=== PATIENT | male | born 1970 | race Caucasian/White ===

== ENCOUNTER → 2017-12-09 | Outpatient (CLI) | payer SELFPAY ==
[2014-05-24 11:23] VITALS: BMI 32.5
[~2017-12-09] MED LIST: ADV250/50 INH; ADVAIR; ALB17R INH; ALBMDV INH; ALBU8.5H12 IH; ALBUDR INH; AMIT-106 PO; AMOX-559 PO; AMOX500C7 PO; ASPI81TA94 PO; ATOR40TA24 PO; AZI250 PO; AZIT-1 PO; AZIT500T47 PO; CARV25TA78 PO; CEP500 PO; CETI10CA8 PO; CHOL10005 PO; CIP500 PO; CIPR-344 PO; CLIN300C99 PO; CYC10 PO; DIA5 PO; DOCU-202 PO; DUL20 PO; DULO30CA35 PO; DULO60CA56 PO; DUONEB INH; FLUO-177 PO; FLUO-202 PO; FLUT1DIS27 IH; FURO-47 PO; GLY5 FT; GLY5 PO; HCTZ25 PO; HYDR-4309 PO; HYDR473S4 PO; IBUP600T22 PO; IBUP800T37 PO; LISI2.5T60 PO; LISI20TA29 PO; LISI5TAB25 PO; LOR5/325 PO; LORA10CA3 PO; MELO-205 PO; METF-411 PO; METH4TAB66 PO; METO-259 PO; MON10 PO; MONT10TA PO; MOX400 PO; MULT-1335 PO; OMEP40CA79 PO; ONDA4TAB PO; OXYC-869 PO; PAN20 PO; PER PO; PRE20 PO; PRED20TA6 PO; RANI-320 PO; RANI150C14 PO; ROBITUSSIN; TAMS0.4C25 PO; TRAZ100T31 PO; ZOLAIR IM; [UNRECOGNIZED DRUG - CODE] PO
== END ==
LOC: US 00:46
PROVIDERS: ATTEND Internal Medicine Cardiovascular Disease
DX: I51.7 Cardiomegaly (principal)
CPT/HCPCS: 93306

== ENCOUNTER 2018-11-25 00:59 | Emergency (ER) | payer SELFPAY ==
[2014-05-24 11:23] VITALS: Wt 120.2 kg
--- NOTE | 2018-11-25 01:19 | ER Report ---
History and Physical Time Seen By MD: 01:16 Hx. of Stated Complaint: PT SLID DOWN STAIRS. COMPLAINT OF PAIN IN RIGHT KNEE. HPI/ROS CHIEF COMPLAINT: Knee injury after fall, right knee HISTORY OF PRESENT ILLNESS: This is a 48-year-old male. He has had chronic problems with his knees in the past saying that he has bilateral anterior cruciate ligament problems. His right knee gave way tonight after he had been drinking heavily. Slipped down several stairs. Now unable to bear weight on the right knee. Having mostly medial pain but a little bit laterally as well. Has chronic peripheral neuropathy in both feet, this is unchanged. He can move the toes, feet and ankles. Denies hitting his head, losing consciousness, having headache, neck pain or back pain. Allergies: Coded Allergies: No Known Drug Allergies (Verified , 11/25/18) Home Meds Active Scripts Hydrocodone Bit/Acetaminophen (HYDROCODON-ACETAMINOPHEN 5-325) 1 Each Tablet, 1 EACH PO Q4H PRN for PAIN, #12 TAB 0 Refills Prov:EMILIA GRACE MD 11/25/18 Reported Medications Furosemide (FUROSEMIDE) 40 Mg Tablet, 1 TAB PO QPM, TAB 04/29/17 Furosemide (FUROSEMIDE) 40 Mg Tablet, 2 TAB PO QAM, TAB 04/29/17 Lisinopril (LISINOPRIL) 5 Mg Tablet, 5 MG PO QDAY, TAB 04/29/17 Carvedilol (CARVEDILOL) 25 Mg Tablet, 25 MG PO BID, #10 TAB 04/29/17 Glyburide (GLYBURIDE) 5 Mg Tab, 5 MG PO, TAB 04/29/17 Fluoxetine Hcl (FLUOXETINE HCL) 20 Mg Capsule, 20 MG PO QDAY, CAPSULE 04/29/17 Aspirin (ASPIRIN) 81 Mg Tab.chew, 81 MG PO QDAY, TAB.CHEW 04/29/17 Duloxetine Hcl (CYMBALTA) 60 Mg Capsule.dr, 60 MG PO QDAY, #5 CAP 04/29/17 Atorvastatin Calcium (LIPITOR) 40 Mg Tablet, 1 TAB PO QDAY, TAB 12/14/16 Metformin Hcl (METFORMIN HCL) 500 Mg Tablet, 2 TAB PO BID, TAB 12/14/16 Montelukast Sodium (SINGULAIR) 10 Mg Tablet, 1 TAB PO QDAY, TAB 12/14/16 Amitriptyline Hcl (AMITRIPTYLINE HCL) 25 Mg Tablet, 25 MG PO QHS, #5 TAB 12/14/16 Albuterol Sulfate (Albuterol Sulfate Hfa) 8.5 Gm Hfa.aer.ad, 8.5 GM IH, 0 Refills 05/08/11 Pantoprazole Sod (Protonix) 20 Mg Tabec, 40 MG PO QDAY, 0 Refills 05/30/10 Discontinued Scripts Prednisone (PREDNISONE) 20 Mg Tablet, 20 MG PO DIRECTED, #23 TAB 0 Refills Take 3 tablets once a day for 4 more days, then decrease to 2 tablets once a day for 3 days, then 1 tablet once a day for 3 days, then 1/2 tablet once a day for 3 days, then stop. Prov:EMILIA GRACE MD 04/29/17 Hydrocodone Bit/Acetaminophen (HYDROCODON-ACETAMINOPHEN 5-325) 1 Each Tablet, 1 EACH PO Q4H PRN for PAIN, #12 TAB 0 Refills Prov:EMILIA GRACE MD 04/29/17 Reviewed Nurses Notes: Yes Hx Smoking: No Smoking Status: Former Smoker Exposure to Second Hand Smoke?: Yes Hx Substance Use Disorder: No Hx Alcohol Use: No Constitutional Vital Sign - Last 24 Hours 11/25/18 11/25/18 11/25/18 11/25/18 01:00 01:03 01:29 01:30 Pulse 87 79 Resp 22 B/P (MAP) 124/80 (95) 124/80 106/65 (79) Pulse Ox 90 95 O2 Delivery Room Air 11/25/18 11/25/18 11/25/18 11/25/18 01:44 01:59 02:00 02:14 Pulse 81 79 79 B/P (MAP) 99/68 (78) Pulse Ox 95 96 97 11/25/18 11/25/18 11/25/18 02:29 02:30 02:44 Pulse 79 78 B/P (MAP) 113/77 (89) Pulse Ox 97 97 Physical Exam General appearance: Alert no distress. Musculoskeltal: Right knee shows shows some moderate swelling. there is no effusion. There is no obvious deformity of the knee. Patella had minimal pain with palpation and slight movement. Medial jointline is tender to palpation. Lateral jointline is minimally tender to palpation. Ermelinda is negative but patient has significant guarding. The joint is stable with no comparable ligamentous laxity to the knee, again was significant guarding There is no tenderness proximal or distal to the knee. Neurologic: The patient has normal sensation distal to the injury. Cardiovascular: Normal pulses and capillary refill in the foot Skin: No rashes. No skin breakdown. DIFFERENTIAL DIAGNOSIS: After history and physical exam differential diagnosis was considered for knee injury including sprain, fracture, meniscus injury and soft tissue injury. Medical Decision Making EKG/Imaging Imaging EXAMINATION: Right knee, 4 views 11/25/2018 1:38 AM HISTORY: Fall. Right knee pain. COMPARISON: No prior right sided comparison. FINDINGS: Mild degenerative spurring in the knee. No fracture or other acute bony abnormality evident. No visible effusion although the knee is flexed in the lateral which lower sensitivity. IMPRESSION: Mild degenerative spurring. No acute bony injury. Report Dictated By: Davis Caal MD at 11/25/2018 1:51 AM ED Course/Re-evaluation ED Course Imaging negative. Recommended knee immobilizer and crutches. Patient was given ibuprofen and Lortab here in the ER. Home with the same medicines, recommended follow-up with orthopedic surgery. Decision to Disposition Date: Nov 25, 2018 Decision to Disposition Time: 02:43 Depart Departure Latest Vital Signs Vital Signs Date Time Temp Pulse Resp B/P (MAP) Pulse Ox O2 Delivery O2 Flow Rate FiO2 11/25/18 02:44 78 97 11/25/18 02:30 113/77 (89) 11/25/18 01:03 22 Room Air Impression: Primary Impression: Right knee injury Condition: Improved Disposition: HOME OR SELF-CARE New Scripts Hydrocodone Bit/Acetaminophen (HYDROCODON-ACETAMINOPHEN 5-325) 1 Each Tablet 1 EACH PO Q4H PRN for PAIN, #12 TAB 0 Refills Prov: EMILIA GRACE MD 11/25/18 Patient Instructions: Knee Immobilizer (ED), Knee Sprain (ED) Additional Instructions: Ibuprofen 200mg over the counter tablets, take 4 tablets three times a day with food. Lortab 5/325, one every 4 hours as needed for pain. Apply ice 20 minutes every 1-2 hours while awake. Keep the knee immobilizer in place. Use crutches with light weightbearing to get around. Rest the injured area, keep it elevated while at rest. Call orthopedic surgery on Anil morning to make an appointment for evaluation this week. Problem Qualifiers Primary Impression: Right knee injury Encounter type: initial encounter Qualified Codes: S89.91XA - Unspecified injury of right lower leg, initial encounter EMILIA GRACE MD Nov 25, 2018 01:19
[2018-11-25] MEDS ORDERED: IBUPROFEN 800 MG TAB PO ONE (01:50)
[2018-11-25] MEDS ORDERED: APAP/HYDROCODONE 325/5 TAB PO ONE (01:50)
--- NOTE | 2018-11-25 02:00 | RADIOLOGY IMAGING REPORT ---
FACILITY: [facility] - [place] PATIENT NAME: Al Boyer : 1970 MR: [id number] V: [id number] EXAM DATE: ORDERING PHYSICIAN: EMILIA GRACE TECHNOLOGIST: Location: [facility] Patient: Al Boyer : 1970 Visit/Account:[id number] Date of Sevice: 11/25/2018 EXAMINATION: Right knee, 4 views 11/25/2018 1:38 AM HISTORY: Fall. Right knee pain. COMPARISON: No prior right sided comparison. FINDINGS: Mild degenerative spurring in the knee. No fracture or other acute bony abnormality eviden t. No visible effusion although the knee is flexed in the lateral which lower sensitivity. IMPRESSION: Mild degenerative spurring. No acute bony injury. Report Dictated By: Davis Caal MD at 11/25/2018 1:51 AM Report E-Signed By: Davis Caal MD at 11/25/2018 1:53 AM WSN:[id number]
[2018-11-25 02:30] VITALS: BP 113/77
[2018-11-25] MEDS ORDERED: ACET/HYDROC 5/325MG TH ER ONLY 2 TAB/BOTTLE PO ONE (02:45)
[2018-11-25] MEDS ORDERED: LOR5/325 PO (02:47)
== END 2018-11-25 03:40 | disposition home or self-care (01) ==
LOC: ER 01:18
DX: S89.91XA Unspecified injury of right lower leg, initial encounter (principal); W10.9XXA Fall (on) (from) unspecified stairs and steps, initial encounter
CPT/HCPCS: 73564; 99283; L1830

== ENCOUNTER → 2018-11-25 | Outpatient (CLI) | payer SELFPAY ==
[2014-05-24 11:23] VITALS: BMI 32.5
[~2018-11-25] MED LIST changes: -HYDR-4309 PO; +HYDR-653 PO; -METF-411 PO; +METF-450 PO
== END ==
LOC: AMB 00:37
PROVIDERS: ATTEND Nurse Practitioner
DX: M25.561 Pain in right knee (principal); W10.9XXA Fall (on) (from) unspecified stairs and steps, initial encounter
CPT/HCPCS: A0425; A0427